=== PATIENT | male | born 1970 | race Caucasian/White ===

== ENCOUNTER 2019-06-30 20:22 | Emergency (ER) | payer BC, SELFPAY ==
[2019-06-30 20:24] VITALS: BP 144/97; PULSE 88; RESP 19; TEMP 36.9; O2SAT 98; BMI 24.4
--- NOTE | 2019-06-30 20:27 | RAD_ITS ---
STUDY: X-RAY CHEST REASON FOR EXAM: Male, 49 years old. Chest pain TECHNIQUE: PA and lateral views of the chest. COMPARISON: None. FINDINGS: Cardiac silhouette unremarkable. Pulmonary vascularity unremarkable. Aorta unremarkable. Retrocardiac opacity on the lateral view is favored to represent a technical artifact. Otherwise, no focal airspace opacities identified. No pleural effusions. Upper abdomen unremarkable. Osseous structures intact. No pneumothorax. RAD/Chest PA and Lateral IMPRESSION: Retrocardiac opacity on the lateral view is favored to represent a technical artifact. Otherwise, no focal airspace opacities identified. Electronically Signed: Patrick Kong, at 21:09 EST Tel , Service support ,
--- NOTE | 2019-06-30 21:21 | ED.RN ---
NO OLD EKGS IN MUSE
[2019-06-30 21:26] LABS: Absolute Lymphocyte Count 2.25 X10^3/uL (0.83-4.51); Absolute Neutrophil Count 5.5 X10^3/uL (2.0-7.7); Basophil# 0.06 X10^3/uL; Basophil% 0.7 % (0-1); Eosinophils% 3.3 % (0-5); Hematocrit 43.8 % (40-54); Hemoglobin 14.6 g/dL (13.0-16.5); Lymphocyte # 2.25 X10^3/ul (4.0); Lymphocyte % 24.8 % (19-41); Mean Corp Hgb Conc 33.3 g/dL (32-36); Mean Corpuscular Hgb 30.9 pg (27.0-32.0); Mean Corpuscular Volume 92.6 fL (80-94); Mean Platelet Vol. 8.9 fl (6.2-12.0); Monocyte# 0.96 X10^3/uL; Monocyte% 10.6 % (0-10); NRBC Flagged by Analyzer 0 % (0-5); Neutrophil # 5.45 X10^3/uL (2.7-7.7); Neutrophil % 60.2 % (47-70); Platelet Count 319 K/mm3 (150-450); RBC Distribution Width CV 11.9 % (11.6-14.6); RBC Distribution Width SD 40.3 fl (35.1-43.9); Red Blood Count 4.73 M/mm3 (4.6-6.2); White Blood Count 9.1 K/mm3 (4.4-11.0)
[2019-06-30 21:51] LABS: Anion Gap 3 (5-15); BUN 19 mg/dL (7-18); BUN/Creat Ratio 18.4 RATIO (10-20); Calcium,Total 9.1 mg/dL (8.5-10.1); Chloride 107 mmol/L (98-107); Creatinine, Serum 1.03 mg/dL (0.70-1.30); EST Glomerular Filtration Rate 82 mL/min (>60); Est Glom Filt Rate - Afr Amer 99 mL/min (>60); Estimated Creatinine Clearance 94.43 ml/min; Glucose 103 mg/dL (74-106); Sodium Level 139 mmol/L (136-145)
--- NOTE | 2019-06-30 22:36 | CT_ITS ---
STUDY: CTA CHEST REASON FOR EXAM: Male, 49 years old. Chest pain. Shortness of breath. Elevated blood pressure. RADIATION DOSAGE (If Supplied By Facility): CTDIvol = ( 15.39 ) mGy, DLP = ( 427.82 ) mGycm TECHNIQUE: The examination was performed with the intravenous administration of IV 100mL Isovue-370. Post-processing of the angiographic images was performed, with multiplanar reformation and 3D reconstruction. Individualized dose optimization techniques were used for this CT. COMPARISON: Chest, June 30, 2019. FINDINGS: Normal enhancement of the main pulmonary artery and right and left pulmonary arteries. Normal enhancement of the bilateral peripheral pulmonary arteries. There is no demonstrated pulmonary embolism. Normal thoracic aorta and visualized great vessels. There is no demonstrated aortic dissection. Normal heart and pericardium. Nonspecific subcentimeter mediastinal lymphadenopathy. Normal hilar regions. Normal visualized trachea and bronchi. The lungs are well expanded. Normal pulmonary parenchyma. Normal pleura. Normal chest wall structures. Normal osseous structures. Normal visualized upper abdomen. CT/CTA Chest W/WO Contrast IMPRESSION: Normal CTA chest examination, without a demonstrated pulmonary embolism or arterial dissection. Electronically Signed: Jamel Cabello DO at 23:12 EST Tel [phone], Service support ,
--- NOTE | 2019-06-30 22:37 | ED.VIS.GEN ---
History of Present Illness Chief Complaint: Chest Pain Narrative: Patient is a 49-year-old male who presents with chest pain. This began yesterday. No history of prior similar symptoms. His pain is located in the left lower chest and is sharp in nature. It is pleuritic. It was severe this afternoon. He denies feeling short of breath. No nausea. No diaphoresis. 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 He is a former smoker. He denies recent travel or surgery. No history of DVT or pulmonary embolism. No known coagulopathies. He is treated for depression and hyperlipidemia. He has had a recent URI-like illness with congestion sinus pressure and sneezing. No fevers. No cough. Past Medical History - Allergies and Home Meds Allergies/Adverse Reactions: Allergies No Known Allergies Allergy (Verified 06/30/19 20:26) Primary Care Physician: Jean-Claude Romero MD [Primary Care Provider] - Past Medical History: - - Hyperlipidemia Smoking Status: Former smoker Review of Systems All systems negative except as indicated General: Denies: Fever Eyes: Denies: Visual changes - bilaterally ENT: Denies: Bilateral ear pain Cardiovascular: Reports: Chest pain Respiratory: Denies: Dyspnea, Cough Gastrointestinal: Denies: Abdominal pain, Nausea, Vomiting Musculoskeletal: Denies: Myalgias, Arthralgias Skin: Denies: Rash Neurological: Denies: Headache Hematologic: Denies: Easy bruising, Easy bleeding Physical Exam Vital Signs/Narrative: Vital Signs Temp Pulse Resp BP Pulse Ox 06/30/19 20:24 98.4 F 88 19 H 144/97 H 98 Inital Vital Signs reviewed: Yes General: Well nourished, Well developed Head: Normocephalic Eyes: EOMI ENT: Moist mucous membranes Neck: Supple Cardiovascular: Regular rate, Regular rhythm Respiratory: No distress, CTA bilaterally. Negative for: Rales, Rhonchi, Wheezing Abdomen: Soft, Nontender, Nondistended Extremities: Nontender, No edema Skin: Normal color Neurological: Alert Psychological: Normal affect Diagnostic/Tx/Re-eval Impressions Chest X-Ray 06/30/19 20:27 IMPRESSION: Retrocardiac opacity on the lateral view is favored to represent a technical artifact. Otherwise, no focal airspace opacities identified. Electronically Signed: Patrick Kong, at 21:09 EST Tel , Service support , Chest CTA 06/30/19 22:36 IMPRESSION: Normal CTA chest examination, without a demonstrated pulmonary embolism or arterial dissection. Electronically Signed: Jamel Marion, DO at 23:12 EST Tel [phone], Service support , 06/30/19 20:27 Chest PA and Lateral [RAD] Stat 06/30/19 22:36 CTA Chest W/WO Contrast [CT] Stat Laboratory Results 06/30/19 06/30/19 21:15 21:15 WBC 9.1 RBC 4.73 Hgb 14.6 Hct 43.8 MCV 92.6 MCH 30.9 MCHC 33.3 RDW Std Deviation 40.3 RDW Coeff of Zamzam 11.9 Plt Count 319 MPV 8.9 Immature Gran % (Auto) 0.400 Neut % (Auto) 60.2 Lymph % (Auto) 24.8 [place] % (Auto) 10.6 H Eos % (Auto) 3.3 Baso % (Auto) 0.7 Absolute Neuts (auto) 5.5 Absolute Lymphs (auto) 2.25 Nucleated RBC % 0 Sodium 139 Potassium 4.0 Chloride 107 Carbon Dioxide 29.0 Anion Gap 3 L BUN 19 H Creatinine 1.03 Estim Creat Clear Calc 94.43 Est GFR (MDRD) Af Amer 99 Est GFR (MDRD) Non-Af 82 BUN/Creatinine Ratio 18.4 Glucose 103 Calcium 9.1 Troponin I < 0.015 - Medical Decision Making Patient was given morphine and Zofran. EKG shows normal sinus rhythm at a rate of 90 with no acute ischemic changes. Chest x-ray showed retrocardiac abnormality which is most likely artifact related. Laboratory studies were unremarkable with a negative troponin. However given sharp pleuritic chest pain this raises concern for pulmonary embolism. CTA of the chest was ordered also to help clarify the questionable abnormality on chest x-ray. CTA returned normal. Therefore this is likely related to chest wall pain or pleurisy. His heart score is only 2 his presentation is not suggestive of cardiac ischemia. Patient was given a prescription for naproxen. He was advised on supportive care but does understand return for new or worsening symptoms, otherwise to follow-up as an outpatient and patient was discharged home. ED Disposition - Plan for ED Patient: Disposition: Home or Assisted Living Diagnosis: Chest pain Instructions: CHEST PAIN, Uncertain Cause Prescriptions: Naproxen [Naprosyn] 500 mg PO BID #20 tab Prescription Printed Referrals: Jean-Claude Romero MD [Primary Care Provider] -
[2019-06-30] MEDS: Morphine 4 MG/ML Syringe IV (22:43)
[2019-06-30] MEDS: Ondansetron 4 MG/2 ML Vial IV (22:43)
[2019-06-30 23:33] VITALS: BP 130/78
--- NOTE | 2019-06-30 23:33 | EKG12_ITS ---
Test Reason : CP Blood Pressure : / mmHG Vent. Rate : 090 BPM Atrial Rate : 090 BPM P-R Int : 112 ms QRS Dur : 078 ms QT Int : 366 ms P-R-T Axes : 051 016 048 degrees QTc Int : 447 ms Normal sinus rhythm Confirmed by DEBBY GRIER, KATHERINE ([id number]), editorial project manager IRVIN DONOHUE ([id number]) on 07/04/2019 11:46:47 AM Referred By: Confirmed By:KATHERINE GUARDADO MD
--- NOTE | 2019-06-30 23:38 | ED.RN ---
NO OLD EKGS IN MUSE
[2019-06-30 23:47] VITALS: BP 126/80; PULSE 80; O2SAT 96
== END 2019-07-01 00:30 | disposition home or self-care (01) ==
PROVIDERS: Emergency Provider Emergency Medicine
DX: R07.81 Pleurodynia (principal); E78.5 Hyperlipidemia, unspecified; Z87.891 Personal history of nicotine dependence
CPT/HCPCS: 71046; 71275; 80048; 84484; 85025; 93005; 96374; 96375; 99283; Q9967; A4216; J2405